=== PATIENT | female | born 1940 | race Caucasian/White ===

== ENCOUNTER 2016-10-13 01:23 | Emergency (ER) | payer MEDICARE, BC ==
[~2016-10-13] VITALS: Ht 152.4 cm; Wt 50.2 kg
[2016-10-13] VITALS (10 sets, daily range): BP systolic 136–180; BP diastolic 76–105; PULSE 18–92; RESP 16–20; TEMP 96–98.7; O2SAT 95–98
[~2016-10-13 01:23] MED LIST: BACL10TA PO; CIMZ200K SQ; CIPR750T10 PO; DILA2INJ IMPLANPUMP; FOLI1TAB PO; FURO1TAB93 PO; KCL10C PO; LORA0.5T PO; METH2.5 PO; METO25 PO; MIRA33502 PO; OMEP20CA5 PO; RYTH150T PO; ZOFR4TAB3 SL
[2016-10-13] MEDS ORDERED: METO25TA3 PO (01:48)
[2016-10-13] MEDS ORDERED: METH2.5T PO (01:48)
[2016-10-13] MEDS ORDERED: PROP150T PO (01:48)
[2016-10-13] MEDS ORDERED: OMEP20TA PO (01:48)
[2016-10-13] MEDS ORDERED: MIRA33504 PO (01:48)
[2016-10-13] MEDS ORDERED: POTA10CA PO (01:48)
[2016-10-13] MEDS ORDERED: FURO1TAB60 PO (01:48)
[2016-10-13] MEDS ORDERED: FOLI1TAB4 PO (01:48)
--- NOTE | 2016-10-13 02:26 | PD ---
HPI Chief Complaint: Fall Time Seen by Provider: 01:56 Travel History International Travel<30 days: No Contact w/Intl Traveler<30days: No Traveled to known affect area: No History of Present Illness HPI The patient is a 76-year-old female that fell yesterday afternoon and hit her occipital area and complains of pain over her entire spine. She complains of C- spine, T-spine and LS-spine pain without any radiation of pain down her extremities. She denies any other trauma other than abrasions of her arms. The fall was a non-syncopal fall and she did not faint prior to the fall. She remembers the entire episode surrounding the fall. She is not on any anticoagulants. PFSH Past Medical History Arthritis: Yes Asthma: No Autoimmune Disease: Yes (OSTEOARTHRITIS; RA) Blood Disorders: No Anxiety: Yes Depression: Yes Heart Rhythm Problems: Yes (PALPITATIONS) Cancer: No Cardiac Catheterization: Yes (x3 NO STENTS/PT DENIES) Cardiovascular Problems: Yes High Cholesterol: Yes Chest Pain: Yes (OCCASSIONAL) Congestive Heart Failure: No COPD: No Cerebrovascular Accident: No Coronary Artery Disease: Yes Diabetes: No Diminished Hearing: No Endocrine: Yes Fibromyalgia: Yes Gastrointestinal Disorders: Yes (CHRONIC CONSTIPATION; POLYPS SIGMOIDOSCOPIES EVERY 6 MONTHS; IBS) GERD: Yes Glaucoma: No Genitourinary: No Headaches: Yes Hepatitis: No Hiatal Hernia: Yes Hypertension: Yes Immune Disorder: Yes Implanted Vascular Access Dvce: Yes (DILAUDID PUMP--RIGHT SIDE OF ABD ) Kidney Stones: Yes Musculoskeletal: Yes Neurologic: Yes Psychiatric: Yes Reproductive: Yes (HYSTERECTOMY) Respiratory: No Immunizations Current: Yes Migraines: Yes Myocardial Infarction: No Radiation Therapy: No Renal Failure: No Seizures: No Sickle Cell Disease: No Sleep Apnea: No Thyroid Disease: Yes Ulcer: No Tetanus Vaccination: < 5 Years Influenza Vaccination: Yes Menopausal: Yes Past Surgical History Abdominal Surgery: Yes (COLONOSCOPY 11/21/13) AICD: No Appendectomy: No Arteriovenous Shunt: No Body Medical Devices: PAIN PUMP (RIGHT ABDOMEN) Cardiac Surgery: No Cholecystectomy: No Ear Surgery: No Endocrine Surgery: No Eye Surgery: No Genitourinary Surgery: No Gynecologic Surgery: Yes Hysterectomy: Yes Insulin Pump: No Joint Replacement: No Neurologic Surgery: Yes (CERVICAL LAMINECTOMY-1995) Oral Surgery: Yes (PARTIAL PLATES) Pacemaker: No Thoracic Surgery: No Other Surgery: Yes (LAMINECTOMY, HEMRODECTOMY) Social History Alcohol Use: Yes (3 TIMES A WEEK) Tobacco Use: No Substance Use: No Allergies-Medications (Allergen,Severity, Reaction): Coded Allergies: Bextra (Verified Allergy, Severe, RASHES, 10/13/16) Novocain (Verified Allergy, Severe, PAPLPITATIONS, 10/13/16) Penicillin (Verified Allergy, Severe, RASHES, 10/13/16) Latex (Verified Allergy, Intermediate, RASHES, 10/13/16) Remeron Alyce-Tab (Verified Allergy, Intermediate, RASHES, 10/13/16) Reported Meds & Prescriptions Reported Meds & Active Scripts Active Reported Propafenone (Propafenone HCl) 150 Mg Tab 150 Mg PO BID Potassium Chloride ER (Potassium Chloride) 10 Meq Cap 10 Meq PO DAILY Omeprazole 20 Mg Tab 20 Mg PO DAILY Miralax Powder (Polyethylene Glycol 3350 Powder) 17 Gm Powd 17 Gm PO DAILY Mix and dissolve one measuring cap-ful (17 grams) in water or juice. Metoprolol Tartrate 25 Mg Tab 25 Mg PO BID Methotrexate 2.5 Mg Tab 2.5 Mg PO Q7D Lasix (Furosemide) 40 Mg Tab 40 Mg PO DAILY Folate (Folic Acid) 1 Mg Tab 1 Mg PO DAILY Review of Systems Except as stated in HPI: all other systems reviewed are Neg Physical Exam Narrative GENERAL: Well-nourished, well-developed, alert and oriented, elderly patient in moderate apparent distress with her spine and occipital head pain. Her vital signs show blood pressure 139/105 but otherwise normal. SKIN: Warm and dry. HEAD: Normocephalic. EYES: No scleral icterus. No injection or drainage. NECK: Supple, trachea midline. No JVD or lymphadenopathy. There is diffuse C- spine tenderness but no posterior spinous process deformity. CARDIOVASCULAR: Regular rate and rhythm without murmurs, gallops, or rubs. RESPIRATORY: Breath sounds equal bilaterally. No accessory muscle use. GASTROINTESTINAL: Abdomen soft, non-tender, nondistended. MUSCULOSKELETAL: No cyanosis, or edema. BACK: The patient is tender over the T-spine and LS-spine without obvious deformity. No CVA tenderness. Straight leg raising is normal and deep tendon reflexes are 0+1 bilaterally both patella Achilles. Pinprick is normal. Data Data Last Documented VS Vital Signs Date Time Temp Pulse Resp B/P Pulse Ox O2 Delivery O2 Flow Rate FiO2 10/13/16 05:00 88 18 151/95 96 Room Air 10/13/16 01:[address] Brain W/O Iv Contrast(Rout) (10/13/16 01:56) Ct Cerv Spine W/O Contrast (10/13/16 01:56) Ct Thor Spine W/O Contrast (10/13/16 01:56) Ct Lumb Spine W/O Contrast (10/13/16 01:56) Mri T Spine W/O Contrast (10/13/16 ) Admit Order (Ed Use Only) (10/13/16 05:20) MDM Medical Decision Making Medical Screen Exam Complete: Yes Emergency Medical Condition: Yes Medical Record Reviewed: Yes Interpretation(s) The CT of the thoracic spine shows possible fracture of the inferior endplate of T7 without retropulsion or stenosis. The CT of the lumbar spine shows moderate degenerative changes with no evidence of acute fracture. The CT of the cervical spine shows moderate degenerative changes without any evidence of acute fracture. The CT of the brain shows no evidence of acute intracranial pathology, there is some atrophy present. Differential Diagnosis Fracture C-spine, fractured T-spine, fracture L-spine, intracranial bleed, contusion scalp, thoracic strain, lumbar sprain, cervical strain Narrative Course The patient has a questionable fracture of T7-8 of the inferior endplate. She is tender in this area and states her pain is "bad". Plan: The patient will be admitted to Dr. West for 23 hour observation. The patient lives alone and is unlikely to care for self at home and we can get an MRI on this patient in the hospital. Physician Communication Physician Communication I discussed the patient with Dr. West. Diagnosis Primary Impression: Closed fracture of T7 vertebra Admitting Information Admitting Physician Requests: Observation Emerson French MD Oct 13, 2016 02:26
--- NOTE | 2016-10-13 03:03 | RADHPO ---
EXAM DATE/TIME: 10/13/2016 02:26 [facility] COMPARISON: CT BRAIN W/O CONTRAST, July 28, 2014, 5:05. INDICATIONS : Trauma. Fall. Cephalgia. RADIATION DOSE: 55.74 CTDIvol (mGy) MEDICAL HISTORY : Hypertension. Gastroesophageal reflux disease. SURGICAL HISTORY : Hysterectomy. Fusion, cervical.Fusion, lumbar. ENCOUNTER: Initial ACUITY: 1 day PAIN SCALE: 7/10 LOCATION: cranial TECHNIQUE: Multiple contiguous axial images were obtained of the head. Using automated exposure control and adjustment of the mA and/or kV according to patient size, radiation dose was kept as low as reasonably achievable to obtain optimal diagnostic quality images. FINDINGS: Noncontrast axial head CT demonstrates the ventricles to be enlarged with a prominent sulcal pattern compatible with atrophy. No acute intracranial hemorrhage, acute cortical infarction, mass or midline shift is seen. Posterior fossa structures are unremarkable. Bone windows demonstrate no abnormality. CONCLUSION: Atrophy. No evidence of acute intracranial pathology. Oren Dubon MD on October 13, 2016 at 3:00 Board Certified Radiologist. This report was verified electronically.
--- NOTE | 2016-10-13 04:10 | RADHPO ---
EXAM DATE/TIME: 10/13/2016 02:26 [facility] COMPARISON: CT CERVICAL SPINE W/O CONTRAST, March 26, 2014, 11:40. INDICATIONS : Trauma. Fall. Neck pain. RADIATION DOSE: 26.24 CTDIvol (mGy) MEDICAL HISTORY : Hypertension. Hernia, hiatal. Gastroesophageal reflux disease. SURGICAL HISTORY : Fusion, cervical. ENCOUNTER: Initial ACUITY: 1 day PAIN SCALE: 7/10 LOCATION: Bilateral neck TECHNIQUE: Volumetric scanning of the cervical spine was performed. Multiplanar reconstructions in the sagittal, coronal and oblique axial planes were performed. Using automated exposure control and adjustment o f the mA and/or kV according to patient size, radiation dose was kept as low as reasonably achievable to obtain optimal diagnostic quality images. FINDINGS: CT of the cervical spine was performed in sagittal and axial planes. There is anterolisthesis likely related to facet arthritis at C7-T1 of 3-4 mm. No focal areas of marrow replacement are identified. T he craniocervical junction appears normal. There is anterior cervical fusion with a plate anteriorly from C5-C6. C2-C3: There is no evidence of disc protrusion or spinal canal stenosis. There is mild facet arthritis on th e left. C3-C4: There is mild annular bulge of the disc. There is mild facet arthritis bilaterally. The neural forami na are clear bilaterally. C4-C5: There is osteophytic ridging along the posterior aspect of vertebral body. There is mild spinal canal stenosis. The neural foramina are clear bilaterally. C5-C6: Postsurgical changes as above. There is no significant spinal canal stenosis. C6-C7: There is osteophytic ridging along the posterior aspect of vertebral body. The neural foramina are cl ear bilaterally. There is mild spinal canal stenosis. C7-T1: There is no evidence of disc protrusion or spinal canal stenosis. There is mild facet arthritis bilat erally. The neural foramina are clear bilaterally. CONCLUSION: 1. Moderate degenerative changes as described above. There is no evidence of acute fracture. Oren Dubon MD on October 13, 2016 at 3:57 Board Certified Radiologist. This report was verified electronically.
--- NOTE | 2016-10-13 04:25 | RADHPO ---
EXAM DATE/TIME: 10/13/2016 02:33 [facility] COMPARISON: No previous studies available for comparison. INDICATIONS : Trauma. Fall. Upper back pain. RADIATION DOSE: 17.31 CTDIvol (mGy) ; Combined studies - Thoracic Spine/Lumbar Spine MEDICAL HISTORY : Hernia, hiatal. Hypertension. Gastroesophageal reflux disease. SURGICAL HISTORY : Fusion, cervical. ENCOUNTER: Initial ACUITY: 1 day PAIN SCALE: 7/10 LOCATION: Bilateral Upper back. TECHNIQUE: Volumetric scanning of the thoracic spine was performed. Multiplanar reconstructions in the sagittal , coronal and oblique axial planes were performed. Using automated exposure control and adjustment o f the mA and/or kV according to patient size, radiation dose was kept as low as reasonably achievable to obtain optimal diagnostic quality images. FINDINGS: FINDINGS: Sagittal images demonstrate 3-4 mm subluxation of T3 on T4. No fractures identified. Axial images per formed from T1-T2 through T12-L1. There is multilevel disc space narrowing and marginal osteophyte fo rmation maximal at T11-T12. There is mild scoliotic deformity convex to the right. T1-T2: No significant abnormalities identified. T2-T3: There is no evidence of disc protrusion or spinal canal stenosis. Ligamentum flavum calcification is present T3-T4: There is no evidence of disc protrusion or spinal canal stenosis. There is mild facet arthritis bilat erally. T4-T5: No significant abnormalities identified. T5-T6: No significant abnormalities identified. T6-T7: No significant abnormalities identified. T7-T8: There is equivocal fracture of the inferior endplate of T7. No retropulsion is identified. MRI is rec ommended for further evaluation if clinically indicated. No vertebral body height loss is identified. T8-T9: No significant abnormalities identified. T9-T10: No significant abnormalities identified. T10-T11: No significant abnormalities identified. T11-T12: There is broad-based annular bulge of disc. There is no significant spinal canal stenosis. The neural foramina are clear bilaterally. T12-L1: No significant abnormalities identified. CONCLUSION: 1. Possible fracture inferior endplate of T7 without retropulsion or stenosis. MRI is recommended for further evaluation if clinically indicated. Oren Dubon MD on October 13, 2016 at 4:14 Board Certified Radiologist. This report was verified electronically.
--- NOTE | 2016-10-13 04:35 | RADHPO ---
EXAM DATE/TIME: 10/13/2016 02:33 [facility] COMPARISON: No previous studies available for comparison. INDICATIONS : Trauma. Fall. Cephalgia. RADIATION DOSE: 17.31 CTDIvol (mGy) ; Combined studies - Thoracic Spine/Lumbar Spine MEDICAL HISTORY : Hypertension. Hernia, hiatal. Gastroesophageal reflux disease. SURGICAL HISTORY : Hysterectomy. Fusion, lumbar. ENCOUNTER: Initial ACUITY: 1 day PAIN SCALE: 7/10 LOCATION: Bilateral Lower back. TECHNIQUE: Volumetric scanning of the lumbar spine was performed. Multiplanar reconstructions in the sagittal, coronal and oblique axial planes were performed. Using automated exposure control and adjustment of the mA and/or kV according to patient size, radiation dose was kept as low as reasonably achievable t o obtain optimal diagnostic quality images. FINDINGS: Sagittal images demonstrate normal vertebral body alignment and curvature.There is anterolisthesis li laron related to facet arthritis at L3-L4 4-5 mm. There is anterior and posterior fusion with pedicle screws and interbody graft from L4-S1. Intrathecal catheter enters at L2-L3 with its tip at T12-L1. T here is mild scoliotic deformity convex to the right. No fractures are identified. Axial images per formed from T12-L1 through L5-S1. T12-L1: No significant abnormalities identified. L1-L2: No significant abnormalities identified. L2-L3: There is mild annular bulge of the disc. There is mild facet arthritis and ligamentum flavum hypertro phy bilaterally. The neural foramina are clear bilaterally. L3-L4: There is broad-based annular bulge of disc. There is moderate facet arthritis bilaterally with ligame ntum flavum hypertrophy. There is moderate neural foraminal narrowing bilaterally L4-L5: Postsurgical changes as above. There is no significant spinal canal stenosis. L5-S1: Postsurgical changes as above. There is no evidence of disc protrusion or spinal canal stenosis. Ther e is moderate facet arthritis bilaterally with ligamentum flavum hypertrophy. CONCLUSION: 1. Moderate degenerative changes as described above. There is no evidence of acute fracture. Oren Dubon MD on October 13, 2016 at 4:25 Board Certified Radiologist. This report was verified electronically.
[2016-10-13] MEDS ORDERED: ONDANSETRON HCL 4 MG/2 ML VIAL IVP PRN (05:30)
[2016-10-13] MEDS ORDERED: SODIUM CHLORIDE 0.9% FLUSH 5 ML FLUSH FLUSH PRN (05:30)
[2016-10-13] MEDS ORDERED: NALOXONE HCL 0.4 MG/ML AMP IV PRN (05:30)
[2016-10-13] MEDS: SODIUM CHLORIDE 0.9% FLUSH 5 ML FLUSH FLUSH SCH ×2 (09:00→20:02)
[2016-10-13] MEDS: ENOXAPARIN SODIUM 30 MG/0.3 ML SYRINGE SQ SCH (10:01)
[2016-10-13] MEDS ORDERED: PRED10 PO (10:44)
[2016-10-13] MEDS ORDERED: ASPI1TAB69 PO (10:45)
[2016-10-13] MEDS ORDERED: CYMB30CA PO (10:46)
[2016-10-13] MEDS ORDERED: LORA1TAB12 PO (10:46)
--- NOTE | 2016-10-13 16:25 | RADHPO ---
EXAM DATE/TIME: 10/13/2016 15:00 [facility] COMPARISON: CT THORACIC SPINE W/O CONTRAST, October 13, 2016, 2:33. INDICATIONS : Back pain after fall this morning.. Thoracic spine CT demonstrated possible fracture involving the in ferior endplate of T7. MEDICAL HISTORY : Cardiovascular disease Hypertension. SURGICAL HISTORY : Hysterectomy. Fusion, cervical. Fusion, lumbar. [employer] synchromed pain pump implanted. ENCOUNTER: Subsequent ACUITY: 1 day PAIN SCORE: 5/10 LOCATION: back TECHNIQUE: Multiplanar multisequence MRI of the thoracic spine was performed. FINDINGS: The study is degraded by motion artifact. VERTEBRA: There is homogeneous marrow signal within the vertebral bodies with no definite marrow edema. Th ere is a chronic compression fracture deformity L1 vertebral body with invagination of the super ior endplate. The T7 vertebral body appears unremarkable. DISCS: Degenerative changes are noted with disc space narrowing and desiccation. There is only minimal spurring. ALIGNMENT: Normal. There is a mild scoliosis. CORD: Normal position and configuration. T1-T2: The thecal sac is normal diameter. No evidence of disc bulge or protrusion. T2-T3: The thecal sac has a normal diameter. No evidence of disc bulge or protrusion. T3-T4: The thecal sac has a normal diameter. No evidence of disc bulge or protrusion. T4-T5: The thecal sac has a normal diameter. No evidence of disc bulge or protrusion. T5-T6: The thecal sac has a normal diameter. No evidence of disc bulge or protrusion. T6-T7: The thecal sac has a normal diameter. No evidence of disc bulge or protrusion. T7-T8: The thecal sac has a normal diameter. No evidence of disc bulge or protrusion. T8-T9: There is a mild disc bulge with mild flattening of the anterior thecal sac. T9-T10: The thecal sac has a normal diameter. No evidence of disc bulge or protrusion. T10-T11: The thecal sac has a normal diameter. No evidence of disc bulge or protrusion. T11-T12: The thecal sac has a normal diameter. No evidence of disc bulge or protrusion. T12-L1: The thecal sac has a normal diameter. No evidence of disc bulge or protrusion. CONCLUSION: 1. The T7 vertebral body appears intact with no marrow edema. 2. Chronic mild compression fracture deformity of the L1 vertebral body with invagination of the supe rior endplate no marrow edema. 3. Degenerative disc change with mild disc bulge at T8-9 level. Fidencio Mccracken MD on October 13, 2016 at 16:19 Board Certified Radiologist. This report was verified electronically.
[2016-10-13] MEDS ORDERED: REME15TA PO (16:27)
[2016-10-13] MEDS ORDERED: LORazepam 1 MG TAB PO PRN (16:30)
--- NOTE | 2016-10-13 16:42 | HHI.HP ---
[facility] Service [facility] Primary Care Physician Arturo Webber MD Admission Diagnosis fall with the superior endplate fracture T7 Diagnoses: (1) Fall at home Diagnosis: Principal (2) Closed fracture of T7 vertebra Diagnosis: Principal (3) Back pain, chronic Diagnosis: Secondary (4) Atrial fibrillation Diagnosis: Secondary (5) Hyperlipidemia Diagnosis: Secondary (6) Hypothyroidism Diagnosis: Secondary (7) Rheumatoid arthritis Diagnosis: Secondary Travel History International Travel<30 Days: No Contact w/Intl Traveler <30 Da: No Traveled to Known Affected Are: No History of Present Illness 76 year-old male with known history of hypertension, hyperlipidemia, atrial fibrillation, chronic neck and back pain, Dilaudid pain pump implantation who fell last night at home. Patient was seen in the room with her family at bedside. Information was taken from patient and family. As indicated the patient has had disequilibrium problems of the last few weeks and has had evaluation done by her primary medical doctor. Patient has only been given walkers and canes to use to ambulate. However the patient was walking up the stairs last night after midnight and apparently lost her balance and fell backwards hitting the back of her head and landing on her bottom and back. She went to get up and apparently fell forward hitting the front of her head. The patient subsequently called her [id number] who had her brought to the hospital for evaluation patient did have imaging studies performed of her entire spine which did show a possible endplate fracture of T7. Is recommended by ER physician that the patient be observed in the hospital for MRI study. Patient has gone through a lot of emotional troubles lately and her daughter used to stay with her, however due to circumstances her daughter does not live with her anymore. Patient has been on her own at her house for at least 2 weeks. During that time is been indicated that she has had worsening ambulation and falls. Patient denies any weakness, paresthesia, ataxia. After discussion with the family, they are concerned that the patient is home alone and has been having this disequilibrium and falling. Recommending either rehabilitation facility or home with home health care for continued care. Review of Systems Constitutional: DENIES: Diaphoretic episodes, Fatigue, Fever, Weight gain, Weight loss, Chills, Dizziness, Change in appetite, Night Sweats Eyes: DENIES: Blurred vision, Diplopia, Eye inflammation, Eye pain, Vision loss , Double Vision Ears, nose, mouth, throat: DENIES: Vertigo, Nasal discharge, Throat pain, Ear Pain, Running Nose, Sinus Pain Respiratory: DENIES: Apneas, Cough, Snoring, Wheezing, Hemoptysis, Sputum production, Shortness of breath Cardiovascular: DENIES: Chest pain, Palpitations, Syncope, Dyspnea on Exertion , Lower Extremity Edema, Orthopnea Gastrointestinal: DENIES: Abdominal pain, Black stools, Bloody stools, Constipation, Diarrhea, Nausea, Vomiting, Difficulty Swallowing, Anorexia Neurologic: COMPLAINS OF: Abnormal gait, DENIES: Headache, Localized weakness , Paresthesias, Seizures, Speech Problems, Tremor, Poor Balance Psychiatric: COMPLAINS OF: Depression Past Family Social History Past Medical History Chronic neck and back pain Rheumatoid arthritis Pulmonic valve stenosis Atrial fibrillation Gastroesophageal reflux Degenerative disc disease Past Surgical History Dilaudid pain pump implantation Cardiac catheterization Multiple back surgeries Neck surgery Hysterectomy Reported Medications Reported Meds & Active Scripts Active Reported Remeron (Mirtazapine) 15 Mg Tab 7.5 Mg PO HS Lorazepam 1 Mg Tab 1 Mg PO BID PRN Cymbalta DR (Duloxetine HCl) 30 Mg Capdr 30 Mg PO DAILY Aspirin 81 Mg Tabdr 81 Mg PO DAILY Prednisone 10 Mg Tab 10 Mg PO DAILY Propafenone (Propafenone HCl) 150 Mg Tab 150 Mg PO BID Potassium Chloride ER (Potassium Chloride) 10 Meq Cap 10 Meq PO DAILY Omeprazole 20 Mg Tab 20 Mg PO DAILY Miralax Powder (Polyethylene Glycol 3350 Powder) 17 Gm Powd 17 Gm PO DAILY Mix and dissolve one measuring cap-ful (17 grams) in water or juice. Metoprolol Tartrate 25 Mg Tab 25 Mg PO BID Methotrexate 2.5 Mg Tab 2.5 Mg PO Q7D Lasix (Furosemide) 40 Mg Tab 40 Mg PO DAILY Folate (Folic Acid) 1 Mg Tab 1 Mg PO DAILY Allergies: Coded Allergies: Bextra (Verified Allergy, Severe, RASHES, 10/13/16) Novocain (Verified Allergy, Severe, PAPLPITATIONS, 10/13/16) Penicillin (Verified Allergy, Severe, RASHES, 10/13/16) Latex (Verified Allergy, Intermediate, RASHES, 10/13/16) Remeron Alyce-Tab (Verified Allergy, Intermediate, RASHES, 10/13/16) Family History Reviewed and significant for mother with Alzheimer's Social History Patient states that she smoked back when she was little girl, patient does drink at least one glass of wine daily, no indication of any illicit drugs Physical Exam Vital Signs Vital Signs Date Time Temp Pulse Resp B/P Pulse Ox O2 Delivery O2 Flow Rate FiO2 10/13/16 16:00 97.6 78 18 136/76 98 10/13/16 12:00 97.6 18 18 143/80 96 10/13/16 11:10 97.7 81 17 140/84 96 10/13/16 08:00 87 16 149/84 95 Room Air 10/13/16 06:07 86 18 165/96 95 Room Air 10/13/16 05:00 88 18 151/95 96 Room Air 10/13/16 03:09 92 18 180/95 96 Room Air 10/13/16 01:51 88 18 96 Room Air 10/13/16 01:48 98.7 88 18 145/102 96 10/13/16 01:31 98.7 88 16 139/105 96 Room Air Physical Exam GENERAL: Well-developed, well-nourished, in no acute distress. alert and orientated HEENT: Head is normocephalic without any lesions or masses noted. Facial features are symmetric. Eyes: Pupils equal round reactive to light. Extraocular muscles are intact. Conjunctivae were clear. Oropharyngeal: Pharynx without any erythema edema. Tongue is midline without deviation. Buccal mucosa is moist without any masses or lesions NECK: Supple without any masses. Trachea midline no deviation. No JVD, no bruits are appreciated CARDIAC: Irregular rhythm, irregular rate. S1/S2 are heard. No murmurs gallops or rubs. LUNGS: Clear to auscultation bilaterally. No wheeze, rhonchi or rales. No use of accessory muscles on inspiration or expiration. ABDOMEN: Soft, nontender. Nondistended. Bowel sounds heard in all 4 quadrants. No organomegaly or masses. Negative rebound, negative guarding EXTREMITIES: No edema, pulses are equal bilaterally. No cyanosis or clubbing. Patient has obvious bony abnormalities of her hands and wrists secondary to rheumatoid arthritis NEUROLOGY: Mood and affect appear appropriate. Cranial nerves II through XII grossly intact. Muscle strength 5/5 in upper and lower extremities bilaterally. Deep tendon reflexes are 2+ in upper and lower extremities bilaterally. Imaging Last Impressions Thoracic Spine CT 10/13/16155 Signed Impressions: Service Date/Time: Thursday, October 13, 2016 02:33 - CONCLUSION: 1. Possible fracture inferior endplate of T7 without retropulsion or stenosis. MRI is recommended for further evaluation if clinically indicated. Oren Dubon MD Lumbar Spine CT 10/13/16155 Signed Impressions: Service Date/Time: Thursday, October 13, 2016 02:33 - CONCLUSION: 1. Moderate degenerative changes as described above. There is no evidence of acute fracture. Oren Dubon MD Head CT 10/13/16155 Signed Impressions: Service Date/Time: Thursday, October 13, 2016 02:26 - CONCLUSION: Atrophy. No evidence of acute intracranial pathology. Oren Dubon MD Cervical Spine CT 10/13/16155 Signed Impressions: Service Date/Time: Thursday, October 13, 2016 02:26 - CONCLUSION: 1. Moderate degenerative changes as described above. There is no evidence of acute fracture. Oren Dubon MD Assessment and Plan Assessment and Plan Acute back pain secondary to recurrent fall at home with probable T7 inferior endplate fracture CT scan performed and did show possible T7 inferior endplate fracture MRI pending Obtain physical therapy evaluation Continue pain control Acute situational depression Consult psychiatry for evaluation Continue home medications Chronic neck and back pain Junior Sales Assistant from implanted pain pump has reassessed the patient and restarted her pain pump Chronic atrial fibrillation Continue home medications Rheumatoid arthritis Continue home medications DVT prevention Sequential compression devices Written by Pee French PA-C, acting as scribe for Dr. Vigil on 10/13/16 at 1600. The documentation accurately reflects the work and decisions performed face-to- face by Dr. Vigil on 10/13/16 at 1600. Problem Qualifiers (1) Fall at home: Qualified Code: W19.XXXA - Fall at home, initial encounter (2) Closed fracture of T7 vertebra: Qualified Code: S22.069A - Closed fracture of seventh thoracic vertebra, unspecified fracture morphology, initial encounter (3) Back pain, chronic: Qualified Code: M54.9 - Chronic back pain, unspecified back location, unspecified back pain laterality (4) Atrial fibrillation: Qualified Code: I48.91 - Atrial fibrillation, unspecified type (5) Hyperlipidemia: Qualified Code: E78.5 - Hyperlipidemia, unspecified hyperlipidemia type (6) Hypothyroidism: Qualified Code: E03.9 - Hypothyroidism, unspecified type (7) Rheumatoid arthritis: Qualified Code: M06.9 - Rheumatoid arthritis, involving unspecified site, unspecified rheumatoid factor presence Pee French Oct 13, 2016 16:42 Parisa Vigil MD Oct 13, 2016 18:44
[2016-10-13] MEDS ORDERED: PILL SPLITTER OTHER PRN (16:45)
[2016-10-13] MEDS: PROPAFENONE HCL 150 MG TAB PO SCH (20:01)
[2016-10-13] MEDS: METOPROLOL TARTRATE 25 MG TAB PO SCH (20:01)
[2016-10-13] MEDS: IBUPROFEN 400 MG TAB PO PRN (20:06)
[2016-10-13] MEDS ORDERED: MIRTAZAPINE 15 MG TAB PO SCH (21:00)
[2016-10-14] VITALS: BP 166/96; PULSE 62; RESP 20; TEMP 96.6; O2SAT 99
[2016-10-14 06:28] LABS: AUTOMATED NEUTROPHIL # 2.2 TH/MM3 (1.8-7.7); BASOPHIL # 0.1 TH/MM3 (0-0.2); BASOPHIL % 1.3 % (0.0-2.0); EOSINOPHIL # 0.5 TH/MM3 (0-0.4); EOSINOPHIL % 11.2 % (0.0-4.0); HEMATOCRIT 32.8 % (35.0-46.0); HEMO FLAGS DIFF FINAL; LYMPH % 30.4 % (9.0-44.0); LYMPHOCYTE # 1.4 TH/MM3 (1.0-4.8); MEAN CELL VOLUME 100.3 FL (80.0-100.0); MEAN CORPUSCULAR HEMOGLOBIN 32.9 PG (27.0-34.0); MEAN CORPUSCULAR HGB CONC 32.8 % (32.0-36.0); MONO % 10.6 % (0.0-8.0); NEUT % 46.5 % (16.0-70.0); PLATELET COUNT 251 TH/MM3 (150-450); RED BLOOD COUNT 3.27 MIL/MM3 (4.00-5.30); RED CELL DISTRIBUTION WIDTH 15.4 % (11.6-17.2); WHITE BLOOD COUNT 4.7 TH/MM3 (4.0-11.0)
[2016-10-14 06:35] LABS: POTASSIUM 4.4 MEQ/L (3.5-5.1)
[2016-10-14 06:40] LABS: BICARBONATE 29.1 MEQ/L (21.0-32.0)
[2016-10-14 08:00] VITALS: BP 139/90; PULSE 55; RESP 16; TEMP 96; O2SAT 97
[2016-10-14] MEDS: METOPROLOL TARTRATE 25 MG TAB PO SCH (08:29)
[2016-10-14] MEDS: SODIUM CHLORIDE 0.9% FLUSH 5 ML FLUSH FLUSH SCH (08:30)
[2016-10-14] MEDS: ENOXAPARIN SODIUM 30 MG/0.3 ML SYRINGE SQ SCH (08:31)
[2016-10-14] MEDS ORDERED: DULoxetine HCl DR 30 MG CAP PO SCH (09:00)
[2016-10-14] MEDS ORDERED: PANTOPRAZOLE SOD 20 MG DELAYED RELEASE TAB PO SCH (09:00)
[2016-10-14] MEDS ORDERED: POTASSIUM CHLORIDE 10 MEQ CAP PO SCH (09:00)
[2016-10-14] MEDS ORDERED: FUROSEMIDE 40 MG TAB PO SCH (09:00)
[2016-10-14] MEDS ORDERED: METHOTREXATE 2.5 MG TAB PO SCH (09:00)
[2016-10-14] MEDS ORDERED: ASPIRIN EC 81 MG TABEC PO SCH (09:00)
[2016-10-14] MEDS ORDERED: FOLIC ACID 1 MG TAB PO SCH (09:00)
[2016-10-14] MEDS ORDERED: POTASSIUM CHLORIDE 10 MEQ CONTROLLED RELEASE TAB PO SCH (09:00)
[2016-10-14] MEDS: PROPAFENONE HCL 150 MG TAB PO SCH (09:55)
[2016-10-14] MEDS ORDERED: INFLUENZA VIRUS VACCINE (QUADRIVALENT) 0.5 ML SYR IM ONE (10:00)
[2016-10-14] MEDS ORDERED: PNEUMOCOCCAL POLYVALENT INJ 25 MCG/0.5 ML SYR IM ONE (10:00)
[2016-10-14 12:00] VITALS: BP 107/70; PULSE 60; RESP 16; TEMP 97; O2SAT 97
--- NOTE | 2016-10-14 12:11 | RADHPO ---
EXAM DATE/TIME: 10/14/2016 11:41 [facility] COMPARISON: RIBS RIGHT(W PA CXR MIN 3VWS), April 14, 2016, 17:36. INDICATIONS : Cough. MEDICAL HISTORY : Cardiovascular disease Hypertension SURGICAL HISTORY : Hysterectomy. Fusion, cervical. Fusion, lumbar. [employer] synchromed pain pump implanted. ENCOUNTER: Subsequent ACUITY: 2 days PAIN SCORE: 0/10 LOCATION: chest FINDINGS: The heart is mildly enlarged. There is prominence of pulmonary arteries suggesting pulmonary artery h ypertension. There are emphysematous changes in both lungs. No acute abnormality is seen. The bony structures are grossly intact. CONCLUSION: 1. Cardiomegaly with prominence of the pulmonary artery suggesting pulmonary artery hypertension. 2. The lungs are clear. Mt Foster MD on October 14, 2016 at 12:09 Board Certified Radiologist. This report was verified electronically.
[2016-10-14] MEDS: IBUPROFEN 400 MG TAB PO PRN (12:12)
--- NOTE | 2016-10-14 12:55 | HHI.PR ---
Subjective Remarks She is seen today by myself and Dr. Vigil. Patient lying in bed resting comfortably. Patient states that she is very sore, could hardly move in the bed. Still awaiting physical therapy for recommendations. Still awaiting psychiatry for evaluation. Patient is not having emotional breakdowns today like she was yesterday so far. He states that she is feeling a little bit better. Patient still risk for discharge home in this time because she does live at home by herself and is had recurrent falls. She does have rather significant back issues with back surgeries, vertebral fractures. At the present time still awaiting further workup to see if patient is stable enough to go home. Until physical therapy evaluate the patient does see if she is safe discharge. Patient remain in the hospital because she is at high risk of falling and causing severe injury, fracture, head injury. Objective Vitals Vital Signs Date Time Temp Pulse Resp B/P Pulse Ox O2 Delivery O2 Flow Rate FiO2 10/14/16 08:00 96.0 55 16 139/90 97 10/14/16 00:00 96.6 62 20 166/96 99 10/13/16 20:00 96.0 69 20 138/83 98 10/13/16 16:00 97.6 78 18 136/76 98 I/O 10/13/16 10/13/16 10/13/16 10/14/16 10/14/16 10/14/16 07:00 15:00 23:00 07:00 15:00 23:00 Intake Total 210 ml 120 ml Balance 210 ml 120 ml Intake Oral 210 ml 120 ml IV Total 0 ml # Voids 4 # Bowel Movements 0 Result Diagram: 10/14/16 0543 10/14/16 0543 Objective Remarks GENERAL: Well-developed, frail, in no acute distress. alert and orientated HEENT: Head is normocephalic without any lesions or masses noted. Facial features are symmetric. Eyes: Extraocular muscles are intact. Conjunctivae were clear. NECK: Supple without any masses. Trachea midline no deviation. No JVD, CARDIAC: Regular rhythm, regular rate. S1/S2 are heard. No murmurs gallops or rubs. LUNGS: Clear to auscultation bilaterally. No wheeze, rhonchi or rales. No use of accessory muscles on inspiration or expiration. ABDOMEN: Soft, nontender. Nondistended. Bowel sounds heard in all 4 quadrants. No organomegaly or masses. Negative rebound, negative guarding EXTREMITIES: No edema, pulses are equal bilaterally. No cyanosis or clubbing NEUROLOGY: Mood and affect appear appropriate. Cranial nerves II through XII grossly intact. Patient very antalgic with moving her extremities due to soreness from recurrent falls. Patient does have bandages noted on arms from multiple skin tears. Urinary Catheter: No Vascular Central Line Catheter: No A/P Assessment and Plan Acute back pain secondary to recurrent fall at home with probable T7 inferior endplate fracture CT scan performed and did show possible T7 inferior endplate fracture MRI noted - negative for fracture Obtain physical therapy evaluation Continue pain control Acute situational depression Consulted psychiatry for evaluation Continue home medications Chronic neck and back pain Bounty Trapper from implanted pain pump has reassessed the patient and restarted her pain pump Chronic atrial fibrillation Continue home medications Rheumatoid arthritis Continue home medications DVT prevention Sequential compression devices Written by Pee French PA-C, acting as scribe for Dr. Vigil on 10/14/16 at 1200. The documentation accurately reflects the work and decisions performed face-to- face by Dr. Vgiil on 10/14/16 at 1200. Discharge Planning 14:00 update. Discussed with physical therapist. Patient ambulated well with physical therapy and is appropriate for discharge home with home health care. I called her daughter Shanelle and we discussed the results of the MRI and physical therapy evaluation. Shanelle was agreeable to arranging home health care with physical therapy. Case management has also additionally provide the daughter Shanelle with other community services for her mother. Pee French Oct 14, 2016 12:55 Parisa iVgil MD Oct 14, 2016 15:25
[2016-10-14] MEDS ORDERED: HYDR-3533 PO (15:23)
--- NOTE | 2016-10-14 15:26 | HHI.FF ---
Face to Face Verification Diagnosis: (1) Fall at home (2) Rheumatoid arthritis (3) Back pain, chronic Physical Therapy Order: Evaluate and Treat Home Health Nursing Order: Medical education Signs/symptoms of disease process Medication education-adverse effect Nursing assessment with vital signs I have seen patient Mirela Fernandez on 10/14/16. My clinical findings support the need for the requested home health care services because: Ltd mobility - disease progression Deconditioned w/ increased weakness Med compliance is questionable Need for psychosocial assistance High risk of falls I certify that my clinical findings support that this patient is homebound because: Unsteady gait/balance Need for psychosocial assistance Parisa Vigil MD Oct 14, 2016 15:26
== END 2016-10-14 16:45 | disposition home health service (06) ==
LOC: PHED 01:23 → PHEDA 05:25 → UNDOADMOB 05:25 → PHEDA 10:07 → PH3B 10:07 → INTOOBSV 18:45 → OBSVTOIN 18:45 → UNDODISIN 10-14 16:45 → PHED 10-14 16:45
DX: S22.069A Unspecified fracture of T7-T8 vertebra, initial encounter for closed fracture (principal); M54.2 Cervicalgia; M54.5 Low back pain; M06.9 Rheumatoid arthritis, unspecified; I10 Essential (primary) hypertension; W18.30XA Fall on same level, unspecified, initial encounter; Z23 Encounter for immunization
CPT/HCPCS: 70450; 71010; 72125; 72128; 72131; 72146; 80048; 85025; 90732; 97162; 99285; G0008; G0009; J1650; J8610; Q2038; 90471; 90686; G0378; G8987-GP; G8988-GP